=== PATIENT | female | born 1995 | race Caucasian/White ===

== ENCOUNTER 2017-03-08 14:24 | Emergency (ER) | payer OTHER ==
[~2017-03-08] VITALS: Ht 162.6 cm; Wt 67.6 kg
[2017-03-08 15:17] LABS: MEAN CORPUSCULAR HGB CONC 34.2 g/dL (32.4-35.8); MEAN CORPUSCULAR VOLUME 90.6 fL (80-100); PLATELET COUNT 223 x10^3/uL (130-400); RED CELL DISTRIBUTION WIDTH 13.1 % (9.6-15.2)
[2017-03-08 15:18] LABS: ALANINE AMINOTRANSFERASE 187 U/L (12-78); ALBUMIN 3.6 g/dL (3.4-5.0); ANION GAP 7 mmol/L (5-15); CALCIUM 8.5 mg/dL (8.5-10.1); CHLORIDE 107 mmol/L (98-107); CREATININE 0.55 mg/dL (0.55-1.02)
[2017-03-08 15:23] LABS: ALKALINE PHOSPHATASE 81 U/L (45-117); BILIRUBIN,TOTAL 0.4 mg/dL (0.2-1.0); TOTAL PROTEIN 7.2 g/dL (6.4-8.2)
[2017-03-08 15:34] LABS: BASOPHILS # (AUTO) 0.03 x10^3/uL (0-0.3); BASOPHILS % (AUTO) 1 % (0-1); EOSINOPHILS # (AUTO) 0.04 x10^3/uL (0-0.8); EOSINOPHILS % (AUTO) 1 % (1-7); LYMPHOCYTES # (AUTO) 2.87 x10^3/uL (1-6.1); LYMPHOCYTES % (AUTO) 56 % (22-44); MD SCAN; MONOCYTES % (AUTO) 10 % (2-9); NEUTROPHILS # (AUTO) 1.72 x10^3/uL (1.8-8.0); NEUTROPHILS % (AUTO) 33 % (42-75)
[2017-03-08 15:51] LABS: MICROSCOPIC INDICATED
[2017-03-08] MEDS ORDERED: AZITHROMYCIN 500 MG TABLET PO ONE (16:30)
[2017-03-08] MEDS ORDERED: CEFTRIAXONE 250 MG IM ONE (16:30)
[2017-03-08] MEDS ORDERED: CEFTRIAXONE 250 MG ONE (16:35)
[2017-03-08] MEDS ORDERED: AZITHROMYCIN 500 MG TABLET ONE (16:35)
[2017-03-08 16:38] LABS: CLUE CELLS NONE SEEN (NONE SEEN); WET PREP WBCS FEW (FEW)
[2017-03-08 16:48] VITALS: BP 123/78
== END 2017-03-08 17:57 | disposition home or self-care (01) ==
LOC: ED 15:53
DX: R10.2 Pelvic and perineal pain (principal)
CPT/HCPCS: 36415; 76830; 80053; 81001; 83690; 84703; 85025; 87210; 87491; 87591; 87808; 96372; 99285; J0696

== ENCOUNTER → 2017-12-03 | Outpatient (CLI) | payer OTHER | END | disposition home or self-care (01) | LOC: CFH 15:05 | PROVIDERS: ATTEND Nurse Practitioner Family | DX: M54.5 Low back pain (principal) | CPT/HCPCS: 72148 ==